=== PATIENT | male | born 1945 | race Caucasian/White ===

== ENCOUNTER 2025-04-22 09:40 | Outpatient (AMB) | payer BC, SELFPAY ==
--- NOTE | 2025-04-22 09:42 | MHC.PC.OV ---
Vital Signs 04/22/25 09:50 Height 5 ft 6 in Weight 177 lb 8 oz BMI 28.6 BP 105/65 Blood Pressure Location Lt brachial Position Sitting Respiration 12 Pulse 69 Pulse Source Pulse Oximeter Temp 97.6 F Temp Source Oral Pulse Oximetry (%) 98 Oxygen Delivery Method Room Air Intake Visit Reasons: FPGA DESIGN ENGINEER appointment Intake Note: New patient to establish care. Reverse Logistics Analyst Required: No Allergies mri dye Allergy (Severe, Uncoded 04/22/25 09:56) Facial Swelling Medication List - Last Reviewed 04/22/25 by Charissa Sanchez MA amoxicillin 2,000 mg PO ONCE carvedilol 25 mg PO BID clopidogrel 75 mg PO DAILY clotrimazole 1% 1 appl topical BID latanoprost 0.005% 1 drp ophthalmic (eye) BEDTIME lisinopril 20 mg PO BID metformin ER 1,000 mg PO DAILY simvastatin 20 mg PO QPM timolol maleate 0.25% 1 drp ophthalmic (eye) BID Tobacco use date assessed: 04/22/25 Fall risk assessment: No Falls in past year Last assessed Fall Risk: 04/22/25 Dental Screening Dental Screen Date: 04/22/25 Did you have a dental visit in the last 12 months?: Yes Did you have a dental problem in the last 6 months where you did not have access to dental care?: No Was dental information given to patient?: Patient has dentist HPI HPI Comments History of Present Illness Details 80 y/o M CAD, 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 Colon: 2024 Vaccines: 04/22/25 Flu, declined Tdap AAA screen EKG: [place] of Care: Card at [facility] visit 1 mo ago. NeuroSurg @ [facility] for L foot pain Optho, wears glasses History of Present Illness The patient is an 80 year old male presenting to establish care. Previous PCP: Dr Quinteros, records rec'd and reviewed. Coronary artery disease, Endocarditis, Afib : - The patient has a history of coronary artery disease and endocarditis, which resulted in an aortic valve replacement and a mitral valve repair. - He sees a process engineer at [facility] and reports his cardiac status is stable. Hypertension: - The patient has a history of hypertension managed with carvedilol 25 mg twice daily and lisinopril 20 mg twice daily. - His process engineer manages these medications. Hyperlipidemia: - The patient is managed for hyperlipidemia with simvastatin 20 mg daily. Type 2 Diabetes Mellitus: - He has a history of type 2 diabetes managed with metformin 1000 mg daily. - His recent A1c was 6.5%, up from 6.2% the previous year. Brain Aneurysm: - The patient has a history of a 3 mm brain aneurysm. - He has not had imaging for at least three years and previously followed up with neurosurgery at [facility]. New problem:: - The patient reports difficulty clearing his throat at night, which is associated with discolored sputum. - Symptoms worsen when he lies down and are relieved when he sits up or drinks water. Foot Pain, L: - The patient reports foot pain and received an injection from a field interviewer, which provided some relief. - He continues to experience pain, particularly when he gets up in the middle of the night, and is scheduled to see the field interviewer again. Medications: - Current medications include carvedilol, Plavix, lisinopril, simvastatin, metformin, timolol, and latanoprost. - He requires amoxicillin 2000 mg for pre-dental antibiotic prophylaxis. 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 - Gastrointestinal: Reports difficulty clearing throat at night, associated with discolored sputum, worse when lying flat and improved by sitting up. - Musculoskeletal: Reports foot pain, particularly at night. - Allergic/Immunologic: Denies allergies other than to MRI dye. Physical Exam General: Well developed, well nourished, in no acute distress. Eyes: Pupils are equal, round and reactive to light and accommodation. Conjunctivae are clear. Vision grossly normal. Pharynx clear Lungs: Clear to auscultation bilaterally. No rales, rhonchi or wheeze noted. Good air flow in all [place]. Heart: Regular rate and rhythm. 2/6 murmurs, click, rubs or gallops are noted. r. Musculoskeletal: Joints are nontender, without swelling, redness, or effusions. Pulses: Peripheral pulses are equal and palpable bilaterally. Extremities: No clubbing, cyanosis nor edema is noted. Psych: Mood and affect appropriate. Results - Labs from April 04 2025 from Outside provider: - A1c: 6.5% (prior year was 6.2%). - Electrolytes: Normal. - Kidney function: Normal. - Cholesterol: Good. - Platelet count: 122, noted as low. Medical Decision Making The patient is an 80-year-old male with a complex medical history who presents to establish primary care. His cardiac conditions appear stable under the care of his process engineer. Of note, his history of a 3 mm brain aneurysm has not been monitored for at least three years, making re-evaluation a priority. A referral will be placed to neurosurgery for updated assessment. His recent labs are reviewed, showing a stable A1c of 6.5% and low platelets of 122, which is likely secondary to his Plavix. The patient's symptoms of nocturnal throat clearing, worse when supine, are consistent with GERD, and a trial of medication is warranted to assess for symptomatic improvement. To ensure comprehensive care, baseline labs including vitamin levels, thyroid function, liver function, and PSA will be obtained today, as these were missing from his recent panel. Health maintenance will be addressed with an influenza vaccine today, and a follow-up is scheduled in four weeks to review results and conduct an annual wellness visit. Plan 1. Establishment Of Care - Will obtain outstanding records from the patient's process engineer. (rec'd) - Patient will receive an influenza vaccination today. - Recommended obtaining a COVID-19 vaccine at a local pharmacy. - The patient will have labs drawn today to check vitamin D, B12, folate, thyroid, PSA, and liver function. - Schedule a follow-up appointment in approximately four weeks to perform an annual wellness visit and review lab results. 2. Brain Aneurysm - The patient has a history of a 3 mm aneurysm with no imaging follow-up for at least three years. - A referral will be placed for the patient to be re-evaluated by neurosurgery. 3. Gastroesophageal Reflux Disease - The patient's symptoms of nocturnal throat clearing, worse when supine, are suggestive of GERD. - A trial of pepcid 20mg QHS will be initiated to see if it alleviates his symptoms. 4. Thrombocytopenia - Recent labs showed a low platelet count of 122. - This is likely a side effect of his Plavix medication; no immediate specialist referral is planned. - Will continue to monitor. 5. Chronic Conditions (Hypertension, T2dm, Hyperlipidemia, Etc.) - The patient will continue his current medications as prescribed. - He is to continue follow-up with his specialists, including his process engineer, urologist, field interviewer, and airborne weapons technical manager. Patient Instructions - You will receive a flu shot today before you leave. - You may go to any pharmacy to receive the updated COVID-19 vaccine at your convenience. - We will send a referral for you to see a neurosurgery specialist to check on the brain aneurysm. - Please go to the lab here in the office today to have your blood drawn. This will check your vitamin levels, thyroid, prostate, and liver. - I am giving you a prescription to try for the throat clearing you experience at night. Take it to see if it provides relief. - Please make a follow-up appointment at the front desk clerk for about four weeks from now. - Continue taking all your current medications as prescribed. - RTO 4 weeks SAWV sooner prn Consent The patient verbally agreed to receive an influenza vaccination and to have lab work performed during the visit. Patient was informed and verbally consented to the use of an ambient scribe for clinic note documentation during this visit. Total time spent caring for the patient today was 45 minutes. This includes time spent before the visit reviewing the chart, time spent during the visit, and time spent after the visit on documentation, reviewing laboratory results, diagnostic imaging, medications, performing a medically necessary evaluation, counseling on diagnoses, care coordination, ordering appropriate tests, ordering appropriate medications, review of tests performed by other providers, reporting test results with the patient, communication with other healthcare providers. [facility] Medical History (Updated 04/22/25 @ 15:34 by Beth Sánchez [facility]) Arthritis Surgical History (Updated 04/22/25 @ 10:27 by Charissa Sanchez MA) H/O aortic valve replacement H/O heart surgery History of repair of mitral valve Family History (Updated 04/22/25 @ 10:28 by Charissa Sanchez MA) Mother HTN (hypertension) Social History (Updated 04/22/25 @ 09:44 by Charissa Sanchez MA) Housing: House Alcohol intake: never Patient Tobacco Use Status: Never used Tobacco e-Cigarette/Vaping Use: Never Used Second Hand Smoke Exposure: No service: No Current occupational status: retired Cognitive needs: No Hearing needs: No Vision needs: Yes (wear glasses) Questionnaire PHQ-9 Over the last 2 weeks, how often have you been bothered by any of the following problems? 1. Little interest or pleasure in doing things: not at all 2. Feeling down, depressed, or hopeless: not at all 3. Trouble falling or staying asleep, or sleeping too much: not at all 4. Feeling tired or having little energy: not at all 5. Poor appetite or overeating: not at all 6. Feeling bad about yourself - or that you are a failure or have let yourself or your family down: not at all 7. Trouble concentrating on things, such as reading the newspaper or watching television: not at all 8. Moving or speaking so slowly that other people could have noticed. Or the opposite - being so fidgety or restless that you have been moving around a lot more than usual: not at all 9. Thoughts that you would be better off or of hurting yourself in some way: not at all Total score: 0 Depression Screening Interpretation: Negative Depression Screening Done: Yes 33566 - PHQ-9 Billing: Yes Source: Developed by Drs. Grady Cali, Nery Hardy, Earl Cha and colleagues, with an educational gt from [employer]. Thrive Questionnaire Date Thrive assessed: 04/22/25 I am a: Patient What is your living situation today?: I have a steady place to live Within the past 12 months, did the food you bought not last and you didn't have the money to get more?: Never true Within the past 12 months, did you worry whether your food would run out before you got money to buy more?: Never true Do you have trouble paying for medicines?: No Do you have trouble getting transportation to medical appointments?: No Do you have trouble paying your heating and electricity bill?: No Do you have trouble taking care of your child, family member or friend?: No Do you have trouble with day-to-day activities such as bathing, preparing meals, shopping, managing finances, etc.?: No Are you currently unemployed and looking for a job?: No Are you interested in more education?: No Please select the resources that you would like help with: None Currently or been in a relationship where the following occur: I choose not to answer THRIVE Score: 0 AUDIT C Alcohol Use Questionnaire (AUDIT-C) 1. How often do you have a drink containing alcohol?: Never 3. How often do you have six or more drinks on one occasion?: Never Total Score: 0 Score Reviewed/Action Taken: Yes VIOLETTE-7 AMB Questionnaire VIOLETTE-7 Date VIOLETTE - 7 assessed: 04/22/25 Feeling nervous, anxious, or on edge: 0 = Not at all Not being able to stop or control worryin = Not at all Worrying too much about different things: 0 = Not at all Trouble relaxin = Not at all Being so restless that it is hard to sit still: 0 = Not at all Becoming easily annoyed or irritable: 0 = Not at all Feeling afraid as if something awful might happen: 0 = Not at all Total VIOLETTE-7 score (0-4 normal; 5-9 mild; 10-14 moderate; 15-21 severe): 0 Source: Developed by Drs. Grady Cali, Nery Hardy, Earl Cha and colleagues, with an educational gt from [employer]. VIOLETTE-7 Assessment Billing VIOLETTE-7 Assessment Tool: VIOLETTE-7 Assessment 19419 Physical exam (Primary Care) Vital Signs: Last Vital Signs Temp 97.6 F 04/22/25 09:50 Pulse 69 04/22/25 09:50 Resp 12 04/22/25 09:50 BP 105/65 04/22/25 09:50 Pulse Ox 98 04/22/25 09:50 Oxygen Delivery Method Room Air 04/22/25 09:50 BMI result Body Mass Index 28.6 Tobacco/Smoking Status: Tobacco use Status Tobacco use date assessed 04/22/25 04/22/25 09:51 Patient Tobacco Use Status Never used Tobacco 04/22/25 09:51 e-Cigarette/Vaping Use Never Used 04/22/25 09:51 PHQ-9: PHQ-9 Score PHQ-9: Total score 0 04/22/25 15:15 Depression Screening Interpretation: Negative Thrive Assessment: Date of Thrive Assessment Date Thrive assessed 04/22/25 04/22/25 09:51 Currently or been in a relationship where the following occur: I choose not to answer Office Procedures Flu Questionnaire Does the patient have a severe egg allergy?: No Does the patient have severe life threatening allergies?: No Does the patient have a fever or illness today?: No Has the patient ever had Guillain-[place] Syndrome?: No Has the patient ever had any past reaction to a flu shot?: No Immunizations Fluarix [id number] (PF) 45 mcg (15 mcg x 3)/0.5 mL IM syringe Performing Provider: DOMINIK Palomares Performing Location: [facility] [place] [facility] Administered by: Charissa Sanchez MA on 04/22/25 10:25 Dose Route Admin Location Dispensed Lot Number Expiration Date [facility] [place] 0.5 mL IM Left Deltoid 0.5 mL [id number] 12/23/25 [id number] [employer] VIS Given Date VIS Provided VIS Publication Date 04/22/25 Single Vaccine 24 Eligibility Eligibility Date Funding Source [place] [facility] [place] 04/22/25 Private Coding Level of Care Code New Pt Level 4 (90280) Complex EM visit Add On G2211 Diagnoses Encounter to establish care Z76.89 CAD (coronary artery disease) I25.10 Brain aneurysm I67.1 HTN (hypertension) I10 HLD (hyperlipidemia) E78.5 VIOLETTE (generalized anxiety disorder) F41.1 Afib I48.91 BPH (benign prostatic hyperplasia) N40.0 Hepatic steatosis K76.0 Thrombocytopenia D69.6 Glaucoma H40.9 Aortic valve replaced Z95.2 History of endocarditis Z86.79 History of colonoscopy Z98.890 Influenza vaccination administered at current visit Z23 Tetanus, diphtheria, and acellular pertussis (Tdap) vaccination declined Z28.21 Diabetes mellitus with complication E11.8 History of echocardiogram Z92.89 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 Additional Codes VIOLETTE-7 Assessment Billing - VIOLETTE-7 Assessment Tool: VIOLETTE-7 Assessment 12930 ([id number]) PHQ-9 - 98297 - PHQ-9 Billing: Yes ([id number]) Assessment & Plan Assessment & Plan (1) Encounter to establish care: Code(s): Z76.89 - Persons encountering health services in other specified circumstances (2) CAD (coronary artery disease): Code(s): I25.10 - Atherosclerotic heart disease of [place] coronary artery without angina pectoris Category: Medical (3) Brain aneurysm: Code(s): I67.1 - Cerebral aneurysm, nonruptured Category: Medical (4) HTN (hypertension): Code(s): I10 - Essential (primary) hypertension Category: Medical (5) HLD (hyperlipidemia): Code(s): E78.5 - Hyperlipidemia, unspecified Category: Medical (6) VIOLETTE (generalized anxiety disorder): Code(s): F41.1 - Generalized anxiety disorder Category: Medical (7) Afib: Code(s): I48.91 - Unspecified atrial fibrillation Category: Medical (8) BPH (benign prostatic hyperplasia): Code(s): N40.0 - Benign prostatic hyperplasia without lower urinary tract symptoms Category: Medical (9) Hepatic steatosis: Code(s): K76.0 - Fatty (change of) liver, not elsewhere classified Category: Medical (10) Thrombocytopenia: Code(s): D69.6 - Thrombocytopenia, unspecified Category: Medical (11) Glaucoma: Code(s): H40.9 - Unspecified glaucoma Category: Medical (12) Aortic valve replaced: Code(s): Z95.2 - Presence of prosthetic heart valve Category: Surgical (13) History of endocarditis: Comment: REQUIRES DENTAL PROPHYLACTIC ABT Code(s): Z86.79 - Personal history of other diseases of the circulatory system Category: Medical (14) History of colonoscopy: Onset Date: ~2024 Code(s): Z98.890 - Other specified postprocedural states Category: Surgical (15) Influenza vaccination administered at current visit: Onset Date: ~04/22/25 Code(s): Z23 - Encounter for immunization Category: Medical (16) Tetanus, diphtheria, and acellular pertussis (Tdap) vaccination declined: Onset Date: ~04/22/25 Code(s): Z28.21 - Immunization not carried out because of patient refusal Category: Medical (17) Diabetes mellitus with complication: Comment: HTN and HLD Code(s): E11.8 - Type 2 diabetes mellitus with unspecified complications Category: Medical (18) History of echocardiogram: Onset Date: ~12/2024 Code(s): Z92.89 - Personal history of other medical treatment Category: Medical (19) Tricompartment osteoarthritis of right knee: Code(s): M17.11 - Unilateral primary osteoarthritis, right knee Category: Medical Plan . Orders: Orders Comprehensive Met. Panel Today E11.8 - Type 2 diabetes mellitus with unspecified complications, E78.5 - Hyperlipidemia, unspecified, I10 - Essential (primary) hypertension Microalbumin, Random (w Creat) Today E11.8 - Type 2 diabetes mellitus with unspecified complications, E78.5 - Hyperlipidemia, unspecified, I10 - Essential (primary) hypertension Vitamin B12 and Folate Today E11.8 - Type 2 diabetes mellitus with unspecified complications, E78.5 - Hyperlipidemia, unspecified, I10 - Essential (primary) hypertension Prostate Specific Antigen Scr Today E11.8 - Type 2 diabetes mellitus with unspecified complications, E78.5 - Hyperlipidemia, unspecified, I10 - Essential (primary) hypertension TSH reflex Free T4 Today E11.8 - Type 2 diabetes mellitus with unspecified complications, E78.5 - Hyperlipidemia, unspecified, I10 - Essential (primary) hypertension Vitamin D 25-OH Total Today E11.8 - Type 2 diabetes mellitus with unspecified complications, E78.5 - Hyperlipidemia, unspecified, I10 - Essential (primary) hypertension Influenza [id number] Immunization Today Z23 - Encounter for immunization Referrals Neurosurgery Referral I67.1 - Cerebral aneurysm, nonruptured Medications: New metformin ER 500 mg PO BID 180 tabs 2RF 90 days famotidine (Pepcid) 20 mg PO BEDTIME 30 tabs 0RF Patient Instructions: Health screenings for men You should visit your health care provider regularly, even if you feel healthy. The purpose of these visits is to: Screen for medical issues Assess your risk for future medical problems Encourage a healthy lifestyle Update vaccinations and other preventive care services Help you get to know your provider in case of an illness Information Even if you feel fine, you should still see your provider for regular checkups. These visits can help you avoid problems in the future. For example, the only way to find out if you have high blood pressure is to have it checked regularly. High blood sugar and high cholesterol level also may not have any symptoms in the early stages. Simple blood tests can check for these conditions. There are specific times when you should see your provider or receive specific health screenings. The [place] Preventive Services Task Force publishes a list of recommended screenings. Below are screening guidelines for men ages 40 to 64. BLOOD PRESSURE SCREENING Have your blood pressure checked at least once every year. Watch for blood pressure screenings in your area. Ask your provider if you can stop in to have your blood pressure checked. Ask your provider if you need your blood pressure checked more often if: You have diabetes, heart disease, kidney problems, or are overweight or have certain other health conditions You have a first-degree relative with high blood pressure You are Black Your blood pressure top number is from 120 to 129 mm Hg, or the bottom number is from 70 to 79 mm Hg If the top number is 130 mm Hg or greater or the bottom number is 80 mm Hg or greater, this is considered stage 1 hypertension. Schedule an appointment with your provider to learn how you can lower your blood pressure. Effects of age on blood pressure CHOLESTEROL SCREENING Cholesterol screening should begin at age 35 for men with no known risk factors for coronary heart disease. Repeat cholesterol screening should take place: Every 5 years for men with normal cholesterol levels More often if changes occur in lifestyle (including weight gain and diet) More often if you have diabetes, heart disease, kidney problems, or certain other conditions COLORECTAL CANCER SCREENING If you are under age 45, talk to your provider about getting screened. You may need to be screened if you have a strong family history of colon cancer or polyps. Screening may also be considered if you have risk factors such as a history of inflammatory bowel disease or polyps. If you are age 45 to 75, you should be screened for colorectal cancer. There are several screening tests available: A stool-based fecal occult blood (gFOBT) or fecal immunochemical test (FIT) every year A stool sDNA test every 1 to 3 years Flexible sigmoidoscopy every 5 years or every 10 years with stool testing FIT done every year CT colonography (virtual colonoscopy) every 5 years Colonoscopy every 10 years You may need a colonoscopy more often if you have risk factors for colorectal cancer, such as: Ulcerative colitis A personal or family history of colorectal cancer A history of growths in your colon called adenomatous polyps DENTAL EXAM Go to the dentist once or twice every year for an exam and cleaning. Your dentist will evaluate if you have a need for more frequent visits. DIABETES SCREENING All adults who do not have risk factors for diabetes should be screened starting at age 35 and repeated every 3 years. If you have other risk factors for diabetes, such as a first degree relative with diabetes, overweight or obesity, high blood pressure, prediabetes, or a history of heart disease, you may be tested more often. If you are overweight and have other risk factors, such as high blood pressure and are planning to become , screening is recommended. EYE EXAM Have an eye exam every 2 to 4 years ages 40 to 54 and every 1 to 3 years ages 55 to 64. Your provider may recommend more frequent eye exams if you have vision problems or glaucoma risk. Have an eye exam that includes an examination of your retina (back of your eye) at least every year if you have diabetes. IMMUNIZATIONS Commonly needed vaccines include: Flu shot: get one every year COVID-19 vaccine: ask your provider what is best for you Tetanus-diphtheria and acellular pertussis (Tdap) vaccine: have as one of your tetanus-diphtheria vaccines if you did not receive it as an adolescent Tetanus-diphtheria: have a booster (or Tdap) every 10 years Varicella vaccine: receive 2 doses if you never had chickenpox or the varicella vaccine and were born in 1980 or after Hepatitis B vaccine: receive 2, 3, or 4 doses, depending on your exact circumstances, if you did not receive these as a child or adolescent, until age 59 Shingles (herpes zoster) vaccine: at or after age 50 Ask your provider if you should receive other immunizations, especially if you have certain medical conditions, such as diabetes or are at increased risk for some diseases such as pneumonia. INFECTIOUS DISEASE SCREENING Screening for hepatitis C: all adults ages 18 to 79 should get a one-time test for hepatitis C. Screening for human immunodeficiency virus (HIV): all people ages 15 to 65 should get a one-time test for HIV. Depending on your lifestyle and medical history, you may need to be screened for infections such as syphilis, chlamydia, and other infections. LUNG CANCER SCREENING You should have an annual screening for lung cancer with low-dose computed tomography (LDCT) if: You are age 50 to 80 years AND You have a 20 pack-year smoking history AND You currently smoke or have quit within the past 15 years OSTEOPOROSIS SCREENING If you are age 50 to 64 and have risk factors for osteoporosis, you should discuss screening with your provider. Risk factors can include long-term steroid use, low body weight, smoking, heavy alcohol use, having a fracture after age 50, or a family history of hip fracture or osteoporosis. Osteoporosis PHYSICAL EXAM All adults should visit their provider from time to time, even if they are healthy. The purpose of these visits is to: Screen for diseases Assess risk of future medical problems Encourage a healthy lifestyle Update vaccinations and other preventive care services Maintain a relationship with a provider in case of an illness Your height, weight, and body mass index (BMI) should be checked at every exam. During your exam, your provider may ask you about: Depression and anxiety Diet and exercise Alcohol and tobacco use Safety, such as use of seat belts and smoke detectors Your medicines and risk for interactions PROSTATE CANCER SCREENING If you're 55 through 69 years old, before having the test, talk to your provider about the pros and cons of having a PSA test. Ask about: Whether screening decreases your chance of dying from prostate cancer. Whether there is any harm from prostate cancer screening, such as side effects from testing or overtreatment of cancer when discovered. Whether you have a higher risk of prostate cancer than others. If you are age 55 or younger, screening is not generally recommended. You should talk with your provider about if you have a higher risk for prostate cancer. Risk factors include: Having a family history of prostate cancer (especially a brother or father) Being If you choose to be tested, the PSA blood test is repeated over time (yearly or less often), though the best frequency is not known. Prostate examinations are no longer routinely done on men with no symptoms. Prostate cancer SKIN EXAM Your provider may check your skin for signs of skin cancer, especially if you're at high risk. People at high risk include those who have had skin cancer before, have close relatives with skin cancer, or have a weakened immune system. TESTICULAR EXAM The [place] Preventive Services Task Force (USPSTF) now recommends against performing testicular self-exams. Doing testicular self-exams has been shown to have little to no benefit.
[2025-04-22 09:50] VITALS: BP 105/65; PULSE 69; RESP 12; TEMP 36.4; O2SAT 98; BMI 28.6
== END 2025-04-22 10:27 | disposition home or self-care (01) ==
LOC: HO.HMCFM 09:41
PROVIDERS: PCP Nurse Practitioner Family; Visit Provider Nurse Practitioner Family
DX: I25.10 Atherosclerotic heart disease of native coronary artery without angina pectoris (principal); I48.91 Unspecified atrial fibrillation; E11.8 Type 2 diabetes mellitus with unspecified complications; I67.1 Cerebral aneurysm, nonruptured; I10 Essential (primary) hypertension; E78.5 Hyperlipidemia, unspecified; F41.1 Generalized anxiety disorder; N40.0 Benign prostatic hyperplasia without lower urinary tract symptoms; K76.0 Fatty (change of) liver, not elsewhere classified; D69.6 Thrombocytopenia, unspecified; Z95.2 Presence of prosthetic heart valve; Z23 Encounter for immunization

== ENCOUNTER 2025-04-22 09:40 | Outpatient (REF) | payer BC, SELFPAY ==
[2025-04-22 15:13] LABS: Microalbum/Creatinine Ratio Ur 6.0 ug/mg cr (<30)
[2025-04-22 15:37] LABS: Folate 11.0 ng/mL (> or = 4.0); Vitamin B12 333 pg/mL (200-900)
[2025-04-22 15:39] LABS: Alanine Aminotransferase 31 U/L (0-40); Albumin Level 4.7 g/dL (3.5-5.0); Alkaline Phosphatase 57 U/L (39-117); Anion Gap 13 (12-20); Aspartate Amino Transferase 28 U/L (5-37); Blood Urea Nitrogen 20 mg/dL (9-16); Calcium 9.8 mg/dL (8.4-10.2); Carbon Dioxide 28 mmol/L (22-29); Chloride 106 mmol/L (96-108); Estimated Glomerular Filt Rate > 60; Potassium 4.5 mmol/L (3.3-5.1); Sodium 142 mmol/L (135-145); Total Protein 7.1 g/dL (6.5-8.0)
== END 2025-04-22 09:41 | disposition home or self-care (01) ==
LOC: HO.WFDLDS 09:40
PROVIDERS: PCP Nurse Practitioner Family; Visit Provider Nurse Practitioner Family
DX: I10 Essential (primary) hypertension (principal); E78.5 Hyperlipidemia, unspecified; I25.10 Atherosclerotic heart disease of native coronary artery without angina pectoris; E11.9 Type 2 diabetes mellitus without complications; M79.672 Pain in left foot; K21.9 Gastro-esophageal reflux disease without esophagitis; D69.6 Thrombocytopenia, unspecified; I67.1 Cerebral aneurysm, nonruptured; F41.1 Generalized anxiety disorder; I48.91 Unspecified atrial fibrillation; N40.0 Benign prostatic hyperplasia without lower urinary tract symptoms; K76.0 Fatty (change of) liver, not elsewhere classified; H40.9 Unspecified glaucoma; M17.11 Unilateral primary osteoarthritis, right knee; Z23 Encounter for immunization; Z95.2 Presence of prosthetic heart valve; Z76.89 Persons encountering health services in other specified circumstances; Z86.79 Personal history of other diseases of the circulatory system; Z98.890 Other specified postprocedural states; Z28.21 Immunization not carried out because of patient refusal; Z92.89 Personal history of other medical treatment; Z12.5 Encounter for screening for malignant neoplasm of prostate
CPT/HCPCS: 36415; 80053; 82043; 82306; 82570; 82607; 82746; 84153; 84443; 90471; 90656; 96127

== ENCOUNTER 2025-06-02 13:01 | Outpatient (AMB) | payer BC, SELFPAY ==
--- NOTE | 2025-06-02 13:05 | A.OFFVIS_ITS ---
Intake Vital Signs 06/02/25 13:10 06/02/25 13:34 Height 5 ft 6 in Weight 182 lb 8 oz BMI 29.5 BP 148/80 H 132/68 Blood Pressure Location Lt brachial Lt brachial Position Sitting Sitting Respiration 13 Pulse 68 Pulse Source Pulse Oximeter Temp 97.5 F Temp Source Oral Pulse Oximetry (%) 98 Oxygen Delivery Method Room Air Intake Visit Reasons: 4 weeks sAWV Intake Note: AWV. Patient needs refill on meds. Labor Operator Required: No Allergies mri dye Allergy (Severe, Uncoded 06/02/25 13:06) Facial Swelling Medication List - Last Reconciled 06/02/25 by Beth Sánchez, JUDGE'S CLERK- amoxicillin 2,000 mg PO ONCE carvedilol 25 mg PO BID cholecalciferol (vitamin D3) 50 mcg PO DAILY clopidogrel 75 mg PO DAILY clotrimazole 1% 1 appl topical BID famotidine 20 mg PO BEDTIME latanoprost 0.005% 1 drp ophthalmic (eye) BEDTIME lisinopril 20 mg PO BID metformin ER 500 mg PO BID 90 days simvastatin 20 mg PO QPM timolol maleate 0.25% 1 drp ophthalmic (eye) BID Do you need a note to return to daycare/school/sports/work: No HPI HPI Comments History of Present Illness Details Here today for AWV. The Medicare Annual Wellness Visit (AWV) is a yearly appointment with a health professional to identify health risks and help reduce them and to create or update a personalized prevention plan. During a Medicare AWV, health professionals should also review any current opioid prescriptions, detect any cognitive impairment, and establish or update medical and family history. 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 Colon: 2024 Vaccines: 04/22/25 Flu, declined Tdap AAA screen: NA EKG: managed by Cards Results: Labs 04/22/25 PSA 4.43, Vit d 14.2 A1c today 6.3% today [place] of Care: Card at [facility] NeuroSurg @ [facility] for L foot pain Optho, wears glasses Visual Acuity: wears glasses last exam about 6mo ago Hearing Screening: reports + hearing loss, referred for hearing test today ACP: HCP and MOLST form + edu provided today Dietary/Nutrition/Exercise Edu provided: Y During the course of the visit the patient was educated and counseled about ap propriate screening and preventative services. Patient instructions were provided to the patient in written or electronic format. I have reviewed and verified the above information History of Present Illness The patient is an 80 year old male presenting with an annual medical wellness visit. Brain aneurysm: - The patient has a history of a 3 mm br ain aneurysm, with the last imaging performed three years ago. - A neurosurgery consultation was sought , but they will not see him until repeat imaging is completed. - There have been delays in obtaining th e imaging due to insurance issues and c onfusion, though the MRI has been authorized. Type 2 diabetes mellitus: - The patient has a history of type 2 di abetes. - His A1c was tested today and was 6.3, an improvement from 6.5 previously. Elevated prostate-specific antigen: - Labs from 04/22/25 showed a PSA of 4.4 3, which is slightly elevated as normal is less than 4. - He was previously told this was accept able given his age by Uro --- remains active w/ uro. Vitamin D deficiency: - The patient's vitamin D level on 04/22 was low at 14.2. - A prescription was sent, but he has no t picked it up, possibly due to insurance coverage issues or because it was not received by the pharmacy. - He will get OTC Throat clearing: - The patient complains of throat cleari ng, which he attributes to certain foods, such as nuts and sweet items. - He tried famotidine for a few days wit hout effect. - He denies any history of heartburn or digestive problems, particularly since his gallbladder surgery. Hearing loss: - The patient reports some age-related h earing problems. - He has had a hearing test in the past but not recently. Past Medical History - Brain aneurysm, 3 mm, last imaged thre e years ago - Type 2 diabetes mellitus - Vitamin D deficiency - Elevated PSA - Low platelet count, attributed to Plav ix Health Maintenance - The patient is here for an annual [facility]. - Vision: Last eye exam was less than si x months ago, with no new concerns. - Hearing: Reports some hearing difficul ty and is interested in an updated hearing test. - Health Care Proxy/Advance Directives: He was given forms for a healthcare proxy and MOLST, which he has not yet read or completed. Review of Systems - Eyes: Denies any new concerns with eye s or vision. - Ears: Reports some age-related hearing problems. - Throat: Reports clearing his throat, e specially after eating nuts or sweet foods. - Gastrointestinal: Denies heartburn or other digestive problems. - Neurological: Denies dizziness when ch anging positions. - General: Denies any other concerns. Physical Exam General: Well developed, well nourished, in no acute distress. Head: Normocephalic, atraumatic. Eyes: Pupils are equal, round and reactive to light and accommodation. Conjunctivae are clear. Scleras nonicteric bilat. Vision grossly normal. Ears: TMs clear AU, EACS WNL. Patient reports a little hearing problem, interested in updating a hearing test. Nose: Patent, without discharge. Neck: No carotid bruit bilat. Supple, no adenopathy or thyromegaly. Breast: Edu on SBE Lungs: Clear to auscultation bilaterally. No rales, rhonchi or wheeze noted. Good air flow in all [place]. Heart: Regular rate and rhythm. 2/6 murmur, No click, rubs or gallops are noted. Abdomen: Bowel sounds present in all quadrants. The abdomen is soft, nontender, with no masses or organomegaly noted. No hernias are noted. : Deferred. Reviewed TIMOTEO & recommendations Pulses: Peripheral pulses are equal and palpable bilaterally. Extremities: No clubbing, cyanosis nor edema is noted. Neurologic: Gait and station normal. Cranial Nerves 2-12 intact. Motor strength grossly symmetrical and intact. No sensory loss. Balance normal. Skin: No rashes, ulcers, or lesions noted. Turgor is good. Skin color is good. Hair and nails are without abnormalities. Psych: Normal eye contact, affect and mood appropriate, and normal interactions. Patient is alert and appropriate to context. Results - Labs (04/22/25): PSA elevated at 4.43. - Labs (04/22/25): Vitamin D low at 14.2 . - Labs (Today): A1c is 6.3, improved fro m a previous 6.5. - Platelet count is on the lower side, w hich is expected due to Plavix. Medical Decision Making The patient is an 80-year-old male here for an annual wellness visit. A neil issue is the follow-up for his known 3 mm brain aneurysm; he has had significant administrative difficulty scheduling the required MRI despite insurance approval. A printed order will be provided to facilitate scheduling, he wants to have done at [facility]. Once the MRI is completed, a neurosurgery referral will proceed for monitoring, as they will not see him without updated imaging. His PSA is slightly elevated at 4.43, this has been faxed to his Uro and he is advised to fu w/ them. His type 2 diabetes is well-controlled, with his A1c improving to 6.3. He has vitamin D deficiency, and he will be advised to take 2000 units of [id number] vitamin D. His complaint of throat clearing appears diet-related, and famotidine was ineffective, so it will be discontinued. He wishes to avoid dietary triggers and will alert me if this worsens. A referral for an audiology evaluation will be placed for his subjective hearing loss. He was provided with advance directive and healthcare proxy forms to complete. Medication refills will be provided. Plan 1. Brain Aneurysm - Plan is to obtain a follow-up MRI of t he head to monitor the 3 mm aneurysm. - Due to scheduling difficulties, a prin nayan order for the MRI will be given to the patient to take directly to the imaging facility. (done) [facility] - A referral to neurosurgery will procee d after the imaging is completed, as this is a prerequisite for their evaluation. - The purpose of monitoring is to ensure the aneurysm does not increase in size. 2. Type 2 Diabetes Mellitus - His A1c has improved to 6.3 from 6.5, indicating good control. - Continue current management. 3. Elevated Prostate-Specific Antigen - His PSA is slightly elevated at 4.43, which is not considered dangerous. - The result was communicated to his uro logist. - He will continue to follow up with uro logy for monitoring. 4. Vitamin D Deficiency - His vitamin D level is low at 14.2. - It is recommended he take oysv-uer-lhz nter vitamin D 2000 units daily. 5. Hearing Loss - He reports subjective hearing difficul ty. - A referral will be placed for a formal hearing test at [facility]. 6. Throat Clearing - Famotidine was ineffective and will be discontinued. - He will continue to monitor symptoms w ith dietary modification, as he notes triggers such as nuts and sweet foods. 7. Preventative Care - He was given Health Care Proxy and MOL ST forms to review and complete. - Carvedilol was refilled and sent to [facility]. - Follow up in one year unless new issue s arise. Patient Instructions - Take the printed order I gave you for the head MRI directly to the radiology department at [facility] to get it scheduled. Also, bring the approval letter you received from your insurance. - After the MRI is done, my office will contact the neurosurgeon for a follow-up appointment for you. - You can buy Vitamin D 2000 units over the a counter at a store like [employer]. You should take this daily. - We have stopped the stomach medication (famotidine) as it was not helping your throat clearing. - Continue to pay attention to which melly ds might be causing your throat clearing and try to avoid them. - You will receive a call to schedule yo ur hearing test. - Please review the Health Care Proxy an d advanced care planning forms. Fill them out and bring them to your next visit if you have questions. - I have refilled your Carvedilol prescr iption and sent it to your mail-order pharmacy. - Plan to see me again in one year, but please call if you get sick or have any changes in your health before then. Consent Patient was informed and verbally consented to the use of an ambient scribe for clinic note documentation during this visit. An additional 30 minutes was spent addressing the problem(s) noted at todays visit. This includes time spent before the visit reviewing the chart, time spent during the visit, and time spent after the visit on documentation reviewing laboratory results, diagnostic imaging, medications, performing a medically necessary evaluation, counseling on diagnoses, care coordination, ordering appropriate tests, ordering appropriate medications, review of tests performed by other providers, reporting test results with the patient, communication with other healthcare providers. REPLACED BY [facility] Medical History (Updated 06/02/25 @ 13:49 by BEBETO PalomaresP-BC) Arthritis Surgical History (Updated 04/22/25 @ 10:27 by Charissa Sanchez MA) H/O aortic valve replacement H/O heart surgery History of repair of mitral valve Family History (Updated 04/22/25 @ 10:28 by Charissa Sanchez MA) Mother HTN (hypertension) Social History (Updated 04/22/25 @ 09:44 by Charissa Sanchez MA) Housing: House Alcohol intake: never Patient Tobacco Use Status: Never used Tobacco e-Cigarette/Vaping Use: Never Used Second Hand Smoke Exposure: No service: No Current occupational status: retired Cognitive needs: No Hearing needs: No Vision needs: Yes (wear glasses) Questionnaire Medicare Wellness Checkup What is your age?: 80 or older What gender do you identify with?: female During the past 4 weeks, how much have you been bothered by emotional problems such as feeling anxious, depressed, irritable, sad or downhearted, and blue?: not at all During the past 4 weeks, has your physical & emotional health limited your social activities with family, friends, neighbors, or groups?: not at all During the past 4 weeks, how much bodily pain have you generally had?: no pain During the past 4 weeks, was someone available to help you if you needed & wanted help?: yes, as much as I wanted During the past 4 weeks, what was the hardest physical activity you could do for at least 2 minutes?: moderate Can you get to places out of walking distance without help? (For eg., can you travel alone on buses, taxis or drive your car?): Yes Can you go shopping for groceries or clothes without someone's help?: Yes Can you prepare your own meals?: Yes Can you do your housework without help?: Yes Because of any health problems, do you need the help of another person with your personal care needs such as eating, bathing, dressing or getting around the house?: No Can you handle your own money without help?: Yes During the past 4 weeks how have things been going for you?: pretty well Are you having difficulties driving your car?: no Do you always fasten your seat belt when you are in a car?: yes, usually During past 4 weeks, have you been bothered by the following: never: Falling or dizzy when standing up, Sexual problems?, Trouble eating well?, Teeth or denture problems?, Problems using the telephone? and Tiredness or fatigue? Have you fallen 2 or more times in the past year?: No Are you afraid of falling?: No Are you a smoker?: no During the past 4 weeks, how many drinks of wine, beer, or other alcoholic beverages did you have?: no alcohol at all Do you exercise for about 20 minutes 3 or more times a week?: yes, some of the time Have you been given information to help with the following?: no: Hazards in your house that might hurt you? and no: Keeping track of your medications? How often do you have trouble taking medicines the way you have been told to take them?: I always take medicine as prescribed How confident are you that you can control & manage most of your health problems?: very confident What is your race?: Other Activity of Daily Living Bathing - sponge bath, tub bath or shower: receives no assistance (gets in/out by self, if usual bathing means Dressing - getting clothes from closets & drawers, including inner/outer garments & fasteners.: gets clothes & gets completely dressed without help Toileting - going to the 'toilet room' for urine/bowel elimination & cleaning self/arranging clothes: goes to toilet room, cleans self, arranges clothes without help Transfer: moves in & out of bed and chair without help (may use support object) Continence: controls urination/bowel movements completely by self Feeding: feeds self without help Total Score: 0 Information obtained from: patient Using telephone: independent Traveling: independent Shopping: independent Preparing meals: independent Housework: independent Taking medicine: independent Managing money: independent PHQ-9 Over the last 2 weeks, how often have you been bothered by any of the following problems? 1. Little interest or pleasure in doing things: not at all 2. Feeling down, depressed, or hopeless: not at all 3. Trouble falling or staying asleep, or sleeping too much: not at all 4. Feeling tired or having little energy: not at all 5. Poor appetite or overeating: not at all 6. Feeling bad about yourself - or that you are a failure or have let yourself or your family down: not at all 7. Trouble concentrating on things, such as reading the newspaper or watching television: not at all 8. Moving or speaking so slowly that other people could have noticed. Or the opposite - being so fidgety or restless that you have been moving around a lot more than usual: not at all 9. Thoughts that you would be better off or of hurting yourself in some way: not at all Total score: 0 Depression Screening Interpretation: Negative Depression Screening Done: Yes 71017 - PHQ-9 Billing: Yes Source: Developed by Drs. Grady Cali, Nery Hardy, Earl Cha and colleagues, with an educational gt from [employer]. Office Procedures Vision Screening Right Eye: 20/25 Left Eye: 20/25 Bilateral: 20/25 Color: Pass Corrected: Pass (wearing glasses) 90743 - Vision Screening Results AMB Hemoglobin A1c AMB Hemoglobin A1c 6.3 % Last Edit by Charissa Sanchez MA on 06/02/25 13:20 Assessment & Plan Assessment & Plan (1) Encounter for annual wellness visit (AWV) in Medicare patient: Onset Date: ~06/02/25 Code(s): Z00.00 - Encounter for general adult medical examination without abnormal findings (2) Diabetes mellitus with complication: Comment: HTN and HLD Code(s): E11.8 - Type 2 diabetes mellitus with unspecified complications (3) ACP (advance care planning): Onset Date: ~06/02/25 Code(s): Z71.89 - Other specified counseling (4) Vitamin D deficiency: Code(s): E55.9 - Vitamin D deficiency, unspecified (5) Elevated PSA, less than 10 ng/ml: Onset Date: ~03/2025 Comment: active w/ Uro Code(s): R97.20 - Elevated prostate specific antigen [PSA] (6) Hearing loss: Code(s): H91.90 - Unspecified hearing loss, unspecified ear Qualifiers: Hearing loss type: unspecified Laterality: bilateral Qualified Code(s): H91.93 - Unspecified hearing loss, bilateral (7) HTN (hypertension): Code(s): I10 - Essential (primary) hypertension Qualifiers: Hypertension type: primary hypertension Qualified Code(s): I10 - Essential (primary) hypertension (8) HLD (hyperlipidemia): Code(s): E78.5 - Hyperlipidemia, unspecified Qualifiers: Hyperlipidemia type: mixed hyperlipidemia Qualified Code(s): E78.2 - Mixed hyperlipidemia (9) BPH (benign prostatic hyperplasia): Code(s): N40.0 - Benign prostatic hyperplasia without lower urinary tract symptoms Qualifiers: Lower urinary tract symptom presence: symptoms absent Qualified Code(s): N40.0 - Benign prostatic hyperplasia without lower urinary tract symptoms (10) Thrombocytopenia: Code(s): D69.6 - Thrombocytopenia, unspecified (11) Brain aneurysm: Code(s): I67.1 - Cerebral aneurysm, nonruptured Plan . Orders: Orders Complete Blood Count no Diff 1 Year D69.6 - Thrombocytopenia, unspecified, E11.8 - Type 2 diabetes mellitus with unspecified complications, E55.9 - Vitamin D deficiency, unspecified, E78.5 - Hyperlipidemia, unspecified, I10 - Essential (primary) hypertension, N40.0 - Benign prostatic hyperplasia without lower urinary tract symptoms, R97.20 - Elevated prostate specific antigen [PSA] Comprehensive Met. Panel 1 Year D69.6 - Thrombocytopenia, unspecified, E11.8 - Type 2 diabetes mellitus with unspecified complications, E55.9 - Vitamin D deficiency, unspecified, E78.5 - Hyperlipidemia, unspecified, I10 - Essential (primary) hypertension, N40.0 - Benign prostatic hyperplasia without lower urinary tract symptoms, R97.20 - Elevated prostate specific antigen [PSA] Prostate Specific Antigen Scr 1 Year D69.6 - Thrombocytopenia, unspecified, E11.8 - Type 2 diabetes mellitus with unspecified complications, E55.9 - Vitamin D deficiency, unspecified, E78.5 - Hyperlipidemia, unspecified, I10 - Essential (primary) hypertension, N40.0 - Benign prostatic hyperplasia without lower urinary tract symptoms, R97.20 - Elevated prostate specific antigen [PSA] Vitamin B12 and Folate 1 Year D69.6 - Thrombocytopenia, unspecified, E11.8 - Type 2 diabetes mellitus with unspecified complications, E55.9 - Vitamin D deficiency, unspecified, E78.5 - Hyperlipidemia, unspecified, I10 - Essential (primary) hypertension, N40.0 - Benign prostatic hyperplasia without lower urinary tract symptoms, R97.20 - Elevated prostate specific antigen [PSA] AMB Hemoglobin A1c Today E11.8 - Type 2 diabetes mellitus with unspecified complications Hemoglobin A1c 1 Year D69.6 - Thrombocytopenia, unspecified, E11.8 - Type 2 diabetes mellitus with unspecified complications, E55.9 - Vitamin D deficiency, unspecified, E78.5 - Hyperlipidemia, unspecified, I10 - Essential (primary) hypertension, N40.0 - Benign prostatic hyperplasia without lower urinary tract symptoms, R97.20 - Elevated prostate specific antigen [PSA] Lipid Panel 1 Year D69.6 - Thrombocytopenia, unspecified, E11.8 - Type 2 diabetes mellitus with unspecified complications, E55.9 - Vitamin D deficiency, unspecified, E78.5 - Hyperlipidemia, unspecified, I10 - Essential (primary) hypertension, N40.0 - Benign prostatic hyperplasia without lower urinary tract symptoms, R97.20 - Elevated prostate specific antigen [PSA] Microalbumin, Random (w Creat) 1 Year D69.6 - Thrombocytopenia, unspecified, E11.8 - Type 2 diabetes mellitus with unspecified complications, E55.9 - Vitamin D deficiency, unspecified, E78.5 - Hyperlipidemia, unspecified, I10 - Essential (primary) hypertension, N40.0 - Benign prostatic hyperplasia without lower urinary tract symptoms, R97.20 - Elevated prostate specific antigen [PSA] TSH reflex Free T4 1 Year D69.6 - Thrombocytopenia, unspecified, E11.8 - Type 2 diabetes mellitus with unspecified complications, E55.9 - Vitamin D deficiency, unspecified, E78.5 - Hyperlipidemia, unspecified, I10 - Essential (primary) hypertension, N40.0 - Benign prostatic hyperplasia without lower urinary tract symptoms, R97.20 - Elevated prostate specific antigen [PSA] Vitamin D 25-OH Total 1 Year D69.6 - Thrombocytopenia, unspecified, E11.8 - Type 2 diabetes mellitus with unspecified complications, E55.9 - Vitamin D deficiency, unspecified, E78.5 - Hyperlipidemia, unspecified, I10 - Essential (primary) hypertension, N40.0 - Benign prostatic hyperplasia without lower urinary tract symptoms, R97.20 - Elevated prostate specific antigen [PSA] Referrals Audiology Referral H91.90 - Unspecified hearing loss, unspecified ear Medications: Changed From carvedilol 25 mg PO BID To carvedilol 25 mg PO BID 180 tabs 2RF 90 days Refilled cholecalciferol (vitamin D3) 50 mcg PO DAILY 90 caps 1RF Discontinued famotidine Discontinued Reason: Patient Completed Course 20 mg PO BEDTIME 90 tabs 1RF Patient Instructions: Health screenings for men You should visit your health care provider regularly, even if you feel healthy. The purpose of these visits is to: Screen for medical issues Assess your risk for future medical problems Encourage a healthy lifestyle Update vaccinations and other preventive care services Help you get to know your provider in case of an illness Information Even if you feel fine, you should still see your provider for regular checkups. These visits can help you avoid problems in the future. For example, the only way to find out if you have high blood pressure is to have it checked regularly. High blood sugar and high cholesterol level also may not have any symptoms in the early stages. Simple blood tests can check for these conditions. There are specific times when you should see your provider or receive specific health screenings. The [place] Preventive Services Task Force publishes a list of recommended screenings. Below are screening guidelines for men ages 40 to 64. BLOOD PRESSURE SCREENING Have your blood pressure checked at least once every year. Watch for blood pressure screenings in your area. Ask your provider if you can stop in to have your blood pressure checked. Ask your provider if you need your blood pressure checked more often if: You have diabetes, heart disease, kidney problems, or are overweight or have certain other health conditions You have a first-degree relative with high blood pressure You are Black Your blood pressure top number is from 120 to 129 mm Hg, or the bottom number is from 70 to 79 mm Hg If the top number is 130 mm Hg or greater or the bottom number is 80 mm Hg or greater, this is considered stage 1 hypertension. Schedule an appointment with your provider to learn how you can lower your blood pressure. Effects of age on blood pressure CHOLESTEROL SCREENING Cholesterol screening should begin at age 35 for men with no known risk factors for coronary heart disease. Repeat cholesterol screening should take place: Every 5 years for men with normal cholesterol levels More often if changes occur in lifestyle (including weight gain and diet) More often if you have diabetes, heart disease, kidney problems, or certain other conditions COLORECTAL CANCER SCREENING If you are under age 45, talk to your provider about getting screened. You may need to be screened if you have a strong family history of colon cancer or polyps. Screening may also be considered if you have risk factors such as a history of inflammatory bowel disease or polyps. If you are age 45 to 75, you should be screened for colorectal cancer. There are several screening tests available: A stool-based fecal occult blood (gFOBT) or fecal immunochemical test (FIT) every year A stool sDNA test every 1 to 3 years Flexible sigmoidoscopy every 5 years or every 10 years with stool testing FIT done every year CT colonography (virtual colonoscopy) every 5 years Colonoscopy every 10 years You may need a colonoscopy more often if you have risk factors for colorectal cancer, such as: Ulcerative colitis A personal or family history of colorectal cancer A history of growths in your colon called adenomatous polyps DENTAL EXAM Go to the dentist once or twice every year for an exam and cleaning. Your dentist will evaluate if you have a need for more frequent visits. DIABETES SCREENING All adults who do not have risk factors for diabetes should be screened starting at age 35 and repeated every 3 years. If you have other risk factors for diabetes, such as a first degree relative with diabetes, overweight or obesity, high blood pressure, prediabetes, or a history of heart disease, you may be tested more often. If you are overweight and have other risk factors, such as high blood pressure and are planning to become , screening is recommended. EYE EXAM Have an eye exam every 2 to 4 years ages 40 to 54 and every 1 to 3 years ages 55 to 64. Your provider may recommend more frequent eye exams if you have vision problems or glaucoma risk. Have an eye exam that includes an examination of your retina (back of your eye) at least every year if you have diabetes. IMMUNIZATIONS Commonly needed vaccines include: Flu shot: get one every year COVID-19 vaccine: ask your provider what is best for you Tetanus-diphtheria and acellular pertussis (Tdap) vaccine: have as one of your tetanus-diphtheria vaccines if you did not receive it as an adolescent Tetanus-diphtheria: have a booster (or Tdap) every 10 years Varicella vaccine: receive 2 doses if you never had chickenpox or the varicella vaccine and were born in 1979 or after Hepatitis B vaccine: receive 2, 3, or 4 doses, depending on your exact circumstances, if you did not receive these as a child or adolescent, until age 59 Shingles (herpes zoster) vaccine: at or after age 50 Ask your provider if you should receive other immunizations, especially if you have certain medical conditions, such as diabetes or are at increased risk for some diseases such as pneumonia. INFECTIOUS DISEASE SCREENING Screening for hepatitis C: all adults ages 18 to 79 should get a one-time test for hepatitis C. Screening for human immunodeficiency virus (HIV): all people ages 15 to 65 should get a one-time test for HIV. Depending on your lifestyle and medical history, you may need to be screened for infections such as syphilis, chlamydia, and other infections. LUNG CANCER SCREENING You should have an annual screening for lung cancer with low-dose computed tomography (LDCT) if: You are age 50 to 80 years AND You have a 20 pack-year smoking history AND You currently smoke or have quit within the past 15 years OSTEOPOROSIS SCREENING If you are age 50 to 64 and have risk factors for osteoporosis, you should discuss screening with your provider. Risk factors can include long-term steroid use, low body weight, smoking, heavy alcohol use, having a fracture after age 50, or a family history of hip fracture or osteoporosis. Osteoporosis PHYSICAL EXAM All adults should visit their provider from time to time, even if they are healthy. The purpose of these visits is to: Screen for diseases Assess risk of future medical problems Encourage a healthy lifestyle Update vaccinations and other preventive care services Maintain a relationship with a provider in case of an illness Your height, weight, and body mass index (BMI) should be checked at every exam. During your exam, your provider may ask you about: Depression and anxiety Diet and exercise Alcohol and tobacco use Safety, such as use of seat belts and smoke detectors Your medicines and risk for interactions PROSTATE CANCER SCREENING If you're 55 through 69 years old, before having the test, talk to your provider about the pros and cons of having a PSA test. Ask about: Whether screening decreases your chance of dying from prostate cancer. Whether there is any harm from prostate cancer screening, such as side effects from testing or overtreatment of cancer when discovered. Whether you have a higher risk of prostate cancer than others. If you are age 55 or younger, screening is not generally recommended. You should talk with your provider about if you have a higher risk for prostate cancer. Risk factors include: Having a family history of prostate cancer (especially a brother or father) Being If you choose to be tested, the PSA blood test is repeated over time (yearly or less often), though the best frequency is not known. Prostate examinations are no longer routinely done on men with no symptoms. Prostate cancer SKIN EXAM Your provider may check your skin for signs of skin cancer, especially if you're at high risk. People at high risk include those who have had skin cancer before, have close relatives with skin cancer, or have a weakened immune system. TESTICULAR EXAM The [place] Preventive Services Task Force (USPSTF) now recommends against performing testicular self-exams. Doing testicular self-exams has been shown to have little to no benefit. Quality Reporting (2019) Adult ([facility] 138//) Smoking risk assessment performed?: Yes Patient Tobacco Use Status: Never used Tobacco Depression screening performed: Yes Screen Results: Yes Negative screen Recommended changes not done: EKG (active w cards ) Systolic BP not done?: No Diastolic BP not done?: No BMI screening not done: No Sexual Activity Screening ([facility] 153) Sexually active?: Yes Immunizations ([facility] 147, 117) Annual Influenza Vaccine: Yes Measles Antibody Test: No Mumps Antibody Test: No Rubella Antibody Test: No Varicella Antibody Test: No Anti Hepatitis A IgG Antigen test: No Anti Hepatitis B Virus Surface Ab test: No Fall Risk Screening ([facility] 139) Last assessed Fall Risk: 06/02/25 Fall risk assessment: No Falls in past year Dementia Assessment ([facility] 149) Cognitive assessment recorded: Yes Assessment of cognition with standardized tool: Yes Depression/Bipolar (159/160/161/177) PHQ-9: Total score: 0 Ophthalmol:Cataracts Visual Acuity (133) Visual acuity exam performed: Yes Coding Level of Care Code Medicare Subsequent (G0439) Est Pt Level 4 (88586) Diagnoses Encounter for annual wellness visit (AWV) in Medicare patient Z00.00 Diabetes mellitus with complication E11.8 ACP (advance care planning) Z71.89 Vitamin D deficiency E55.9 Elevated PSA, less than 10 ng/ml R97.20 Bilateral hearing loss, unspecified hearing loss type H91.93 Hearing loss type: unspecified Laterality: bilateral Primary hypertension I10 Hypertension type: primary hypertension Mixed hyperlipidemia E78.2 Hyperlipidemia type: mixed hyperlipidemia Benign prostatic hyperplasia without lower urinary tract symptoms N40.0 Lower urinary tract symptom presence: symptoms absent Thrombocytopenia D69.6 Brain aneurysm I67.1 CPT Codes Advance Care Planning - Time spent: 16-45 minutes ([id number]) Vision Screening - Vision Screenin - Vision Screening ([id number]) Additional Codes PHQ-9 - 67052 - PHQ-9 Billing: Yes ([id number]) Advance Care Planning Advance Care Planning discussion: Exists, not on file Date of discussion: 06/02/25 Who was present: self Forms completed: Health Care Proxy, MOLST and Living will Time spent: 16-45 minutes Actual minutes spent: 16
[2025-06-02 13:10] VITALS: BP 148/80; PULSE 68; RESP 13; TEMP 36.4; O2SAT 98; BMI 29.5
[2025-06-02 13:34] VITALS: BP 132/68
== END 2025-06-02 13:43 | disposition home or self-care (01) ==
LOC: HO.HMCFM 13:02
PROVIDERS: PCP Nurse Practitioner Family; Visit Provider Nurse Practitioner Family
DX: Z00.00 Encounter for general adult medical examination without abnormal findings (principal); E11.8 Type 2 diabetes mellitus with unspecified complications; I10 Essential (primary) hypertension; E55.9 Vitamin D deficiency, unspecified; R97.20 Elevated prostate specific antigen [PSA]; H91.93 Unspecified hearing loss, bilateral; E78.2 Mixed hyperlipidemia; N40.0 Benign prostatic hyperplasia without lower urinary tract symptoms; D69.6 Thrombocytopenia, unspecified; I67.1 Cerebral aneurysm, nonruptured

== ENCOUNTER → 2025-06-02 13:01 | Outpatient (BNVA) | payer BC, SELFPAY | PROVIDERS: PCP Nurse Practitioner Family; Visit Provider Nurse Practitioner Family | DX: Z00.00 Encounter for general adult medical examination without abnormal findings (principal); I67.1 Cerebral aneurysm, nonruptured; R97.20 Elevated prostate specific antigen [PSA]; E55.9 Vitamin D deficiency, unspecified; E11.8 Type 2 diabetes mellitus with unspecified complications; H91.93 Unspecified hearing loss, bilateral; I10 Essential (primary) hypertension; E78.2 Mixed hyperlipidemia; N40.0 Benign prostatic hyperplasia without lower urinary tract symptoms; D69.6 Thrombocytopenia, unspecified; Z95.2 Presence of prosthetic heart valve; Z71.89 Other specified counseling | CPT/HCPCS: 83036; 96127 ==